=== PATIENT | female | born 1975 | race Caucasian/White ===

== ENCOUNTER 2016-12-08 14:11 | Inpatient (IN) | payer OTHER ==
[~2016-12-08] VITALS: Ht 154.9 cm; Wt 57.6 kg
[~2016-12-08 14:11] MED LIST: DOCU50CA7 PO
[2016-12-08 15:22] LABS: Mean Corpuscular Hemoglobin 29.3 pg (27.0-35.0)
--- NOTE | 2016-12-08 16:21 | PCM.HPOB ---
Subjective Date of Service: Dec 08, 2016 Referring Provider: Admitting Physician: Primary Care Physician: Veronica Martinez MD Attending Physician: Marissa Rahman MD History of Present History of Present Illness This is a 40-year-old at 38 weeks with a estimated date of delivery of 22 December. Her has been complicated by advanced maternal age and Subutex use. She came to the OB clinic today for an NST where her blood pressure was found to be elevated, with decreased movement. She was then transferred to the [facility] where her blood pressure was 149/74 in triage. He denies headaches, blurred vision, contractions, discharge. Patient does not want an epidural. OB History: (5), Para (2) Obstetrical Complications: Gestational Hypertension Past Medical History Obstetrical History: Previous vaginal delivery 2 Medical History: Patient has a history of narcotic pain medication use for fibromyalgia. She is currently tapering her Subutex. Surgical History: None Hx Substance Use: Yes (Percocet) Review of Systems Psychologic: Reports: Apprehensive Medications Home medications vitamin, Subutex 12 mg per day Allergy Coded Allergies: No Known Allergies (Verified , 12/08/16) Exam Vital Signs BP 144/72 HR 110 Exam FHR 160, moderate variability with accelerations Constitutional: Well-developed, Well-nourished, Normal habitus HEENT: Atraumatic Lungs: Clear to Auscultation, Clear to Percussion, Normal Air Movement Heart: Exam Unremarkable, Regular Rate/Rhythm Abdomen: Gravid Extremities: Warm, No Edema Neurological/Psychiatric: Alert, Oriented X3, Cooperative Neuro: Grossly Neurologically Intact Labs/Diagnostics Lab/Diagnostic Information A positive, Rh antibody negative, rubella nonimmune, varicella immune, GBS negative, Maternal Blood Type: A (positive) Antibody Screen: negative Group B Strep Results: Negative Rubella: Non-Immune OB Intrapartum Assessment/Plan Assessment 40-year-old at 38 weeks with gestational hypertension -Monitor heart tones -Admit and begin induction of labor with Cytotec Attending Statement The patient was seen and examined together with Dr. Reinaldo Silverman DO on 2016 and I agree with the history, exam and plan as outlined in the note above. Reinaldo Silverman DO Dec 08, 2016 16:21 Marissa Rahman MD Dec 17, 2016 13:17
[2016-12-08] MEDS ORDERED: Sodium Chloride LOK Flush 10 mL Syringe IVFLUSH PRN (16:45)
[2016-12-08] MEDS ORDERED: Oxytocin 30 Units/500 mL LR 30 UNITS in IV Premix 1 EACH IV PRN (16:45)
[2016-12-08] MEDS ORDERED: Oxytocin 10 Unit/mL Inj IM PRN (16:45)
[2016-12-08] MEDS ORDERED: Carboprost 250 mCg/mL Inj IM PRN (16:45)
[2016-12-08] MEDS ORDERED: Methylergonovine 0.2 mg/mL Inj IM PRN (16:45)
[2016-12-08] MEDS ORDERED: Lactated Ringer's 1,000 ML IV PRN (16:45)
[2016-12-08] MEDS ORDERED: Hemorrhage Kit, Post Partum XX ONE (16:45)
[2016-12-08] MEDS ORDERED: Misoprostol 25 mCg/0.25 Tablet VAGINAL SCH (18:45)
[2016-12-08] MEDS ORDERED: diphenhydrAMINE 50 mg Capsule PO PRN (18:45)
[2016-12-08 18:52] LABS: Mean Corpuscular Hemoglobin 29.7 pg (27.0-35.0); Mean Corpuscular Volume 86.9 fL (81-100)
[2016-12-08] MEDS ORDERED: PREN-12 PO (18:57)
[2016-12-08] MEDS ORDERED: BUPR1FIL3 SL (18:57)
[2016-12-09] MEDS: Lactated Ringer's 1,000 ML IV SCH ×2 (00:17→21:10)
--- NOTE | 2016-12-09 06:49 | PCM.PNOBIP ---
Subjective Date of Service Dec 09, 2016 Delivery plan: Spontaneous Vaginal Delivery Visit History Ruma is a 41-year-old at 38 weeks 1 day, with an estimated date of delivery of 22 December. She presented to the OB clinic 28 November for an NST was found to have elevated blood pressure in the 160s. She was transferred to the [facility] and admitted for gestational hypertension. She received Cytotec and 8:00 last night, and Cervidil 3:15 this morning. Cervical check by Lilly at insertion of Cervidil was /-2. Membranes intact. Patient has been having contractions every 4-6 minutes overnight. Vital signs have remained stable. FHT has been in the 130s to 140s with moderate variability and accelerations. Subjective Patient has been concerned about her baby's well-being, as she is on Subutex, and is trying to avoid any other medications/interventions if possible. Gastrointestinal: No N/V Group B Strep Results: Negative Rubella: Non-Immune Blood Type: A (positive) Labs Laboratory Tests 12/08/16 15:15: Hematology Comments 12/08/16 18:35: White Blood Count 13.8, Red Blood Count 4.27, Hemoglobin 12.7, Hematocrit 37.1, Mean Corpuscular Volume 86.9, Mean Corpuscular Hemoglobin 29.7, Mean Corpuscular Hemoglobin Concent 34.2, Red Cell Distribution Width 13.2, Platelet Count 275 Exam Vital Signs Vital Signs Contraction frequency in minutes: MVUs: Vital Signs: VS reviewed, stable (128/56) Heart Tracings Heart Tones Baseline 140 bpm Heart Rate Variability: Moderate Heart Rate Accelleration: Present Tocometry/IUPC Contraction frequency in minutes: MVUs: Exam Lungs: Clear to Auscultation, Clear to Percussion, Normal Air Movement Heart: Exam Unremarkable, Regular Rate/Rhythm General: Alert, Oriented X3, Cooperative OB Intrapartum Assessment/Plan Assessment 41-year-old at 38 weeks 1 day with gestational hypertension -Continue induction of labor -Monitor for elevated maternal blood pressures and distress Opioid dependence in -Continue Subutex 4 mg twice a day Attending Statement Gestation hypertension for induction of labor. Started with cytotec and cervidil placed 3am. Will continue cervical ripening. Will reevaluate at 3pm. Reinaldo Silverman DO Dec 09, 2016 06:49 Winifred Galindo MD Dec 09, 2016 21:41
[2016-12-09] MEDS: Buprenorphine 2 mg SL Tablet SL SCH ×3 (09:28→21:13)
[2016-12-09] MEDS ORDERED: Oxytocin 30 Units/500 mL LR 30 UNITS in IV Premix 1 EACH IV PRN (16:40)
[2016-12-09] MEDS: fentaNYL-PF 50 mCg/mL 2 mL Inj IVPUSH PRN ×2 (16:54→22:18)
[2016-12-09] MEDS ORDERED: Lactated Ringer's 1,000 ML IV SCH (18:43)
[2016-12-09] MEDS ORDERED: Lactated Ringer's 500 ML IV ONE (18:43)
[2016-12-09] MEDS ORDERED: Atropine 1 mg/10 mL (Code) Syringe IVPUSH PRN (18:45)
[2016-12-09] MEDS ORDERED: Ondansetron 2 mg/mL 2 mL Inj IVPUSH PRN (18:45)
[2016-12-09] MEDS ORDERED: EPHEDrine Sulfate 50 mg/mL Inj IVPUSH PRN (18:45)
--- NOTE | 2016-12-09 23:34 | PCM.HPANE ---
Patient Data Surgeon Admitting Provider:Marissa Rahman MD Attending Provider:Marissa Rahman MD Primary Care Physician:Veronica Martinez MD Other Provider:Merissa Bunch Anesthesia Reason for Visit NST NST Ht/WT & BMI Body Mass Index Allergies Coded Allergies: No Known Allergies (Verified , 12/08/16) Past Anesthesia History Anesthesia History: Denies:: Abnormal Airway, Anesthesia Reactions, Difficult Intubation, Fam Anesthesia Reaction, Fam Malignant Hypertherm, Malignant Hyperthermia Diabetes History Hx Diabetes?: No Medications Reported Medications Vit W-Ca,Fe,FA(<1 mg) ( Formula)1 Each Tablet1 Each PO 12/08/16 Buprenorphine HCl/Naloxone HCl (Suboxone 8 mg-2 mg Sl Film)1 Each Film8-12 Each SL DAILY Ref 0 12/08/16 Discontinued Scripts Docusate Sodium 50 Mg [id number] Mg PO BID PRN For Constipation #20 CAPSULE Prov:Jerzy Tripp PAC 02/24/15 History History of ENT Problems?: No HEENT History: Denies:: Abnormal Airway Cataracts Difficult Intubation Dysphagia Glaucoma Hearing Problem Sinus Problem TMJ Denture Type: None Teeth Condition: Within Normal Limits Hx of Heart Problems?: No Cardiovascular History: Denies:: AICD Abdominal Aortic Aneurism Atrial Fibrillation Cardiac Surgery Chest Pain Congestive Heart Failure Coronary Artery Disease Edema Heart Murmur Hypertension Irregular Heartbeat Pacemaker Peripheral Vascular Rheumatic Fever Thrombophlebitis Valvular Heart Disease Hx of Respiratory Problem?: No Respiratory History: Denies:: Tuberculosis Hx Neurologic Problems?: Yes (fibromyalgia) Hx of GI Problems?: No Hx of Problems?: No Female Hx: Positive for:: Currently Hx Musculoskeletal Problems?: Yes Musculoskeletal History: Positive for:: Fibromyalgia Hx of Psycho/Social Problems?: Yes (hx chronic opiate use) Other History/Comment on subutex Hx Surgeries?: Yes (JAW) Hx Any Other Health Problems?: No Hx Diabetes: No Hx Alcohol Use: NoHx Substance Use: Yes (Percocet)Have You Smoked inLast 12 mo : No Stop/Bang Risk Assessment Category Category 1A: Patient has history of documented sleep apnea, and HAS NOT received any narcotic, sedative or anesthesia administration during this stay. Category 1B: Patient has history of documented sleep apnea, and HAS received any narcotic , sedative or anesthesia administration during this stay Category 2: Patient has SUSPECTED Obstructive Sleep Apnea, and HAS received any narcotic , sedative or anesthesia administration during this stay. Category 3: Patient has SUSPECTED Obstructive Sleep Apnea and HAS NOT received narcotic, sedative or anesthesia administration during this stay. Category 4: Outpatient in Procedural Areas with known sleep apnea or who screen positive for High Risk via the STOP/BANG questionnaire. Exam Exam General Appearance: Alert, Oriented X3, Cooperative HEENT/AIRWAY: MP 2, Neck Movement (FROM) Lungs: Clear to Auscultation, Clear to Percussion, Normal Air Movement Heart: Exam Unremarkable, Regular Rate/Rhythm Meds/Labs/Diagnostics Admission Meds Current Medications Buprenorphine HCl (Subutex) 4 mg BID SL Last administered on 12/09/16 09:28; Start 12/08/16 at 20:30 Misoprostol (Cytotec) 25 mcg Q4H VAGINAL Last administered on 12/08/16 20:06; Start 12/08/16 at 18:45 Labs Test 12/08/16 15:15 12/08/16 16:49 12/08/16 18:35 12/08/16 18:40 Hematology Comments Blood Urea Nitrogen 5mg/dL (6-24) Creatinine 0.53mg/dL (0.57-1.00) Uric Acid 4.5mg/dL (2.6-7.2) Aspartate Amino Transf (AST/SGOT) 22U/L (0-50) Alanine Aminotransferase (ALT/SGPT) 12U/L (0-32) Urine Random Creatinine 9mg/dL (15-278) Urine Random Total Protein < 4mg/dL (0-15) Urine Protein/Creatinine Ratio (0-200) White Blood Count 13.8th/mm3 (3.8-10.1) Red Blood Count 4.27mil/mm3 (3.90-5.20) Hemoglobin 12.7g/dL (12.0-15.6) Hematocrit 37.1% (35.0-46.0) Mean Corpuscular Volume 86.9fL (81-100) Mean Corpuscular Hemoglobin 29.7pg (27.0-35.0) Mean Corpuscular Hemoglobin Concent 34.2% (32.0-37.0) Red Cell Distribution Width 13.2% (12.3-15.4) Platelet Count 275bil/L (150-400) Urine Opiates Screen Negative Urine Methadone Screen Negative Urine Barbiturates Screen Negative Urine Amphetamines Screen Negative Urine Benzodiazepines Screen Negative Urine Cocaine Metabolite Screen Negative Urine Cannabinoids Screen Negative Plan Impression Patient chart reviewed, patient interviewed and anesthestic plan with risks, benefits, and alternatives discussed, and informed consent obtained. ASA Physical Status: ASA3 Severe Disease (chronic opiates) Anesthetic Plan: Epidural Bene/Risks/Altern/Consents: Yes HP Complete Prior to Induction: Yes Tone Mcnamara MD Dec 09, 2016 18:43
[2016-12-10] MEDS ORDERED: Sodium Chloride LOK Flush 10 mL Syringe IVFLUSH SCH (00:30)
[2016-12-10] MEDS: Lactated Ringer's 1,000 ML IV SCH ×2 (01:13→20:09)
--- NOTE | 2016-12-10 06:54 | PCM.PNOBIP ---
Subjective Date of Service Dec 10, 2016 Delivery plan: Spontaneous Vaginal Delivery Visit History Ruma is a 41-year-old at 38 weeks 2 days, with an estimated date of delivery of 22 December. She presented to the OB clinic 08 December for an NST and was found to have elevated blood pressure in the 160s. She was transferred to the [facility] and admitted for gestational hypertension. She has received Cytotec and Cervidil, and is progressing very slowly. Cervical check today at 0330 by nurse was 3.5/90/-2. She is currently on Pitocin. Patient has been having contractions every 3-4 minutes. Vital signs have remained stable. FHT has been in the 150s with moderate variability and accelerations. Patient received an epidural last night. Subjective Patient is resting comfortably in bed with . Pain Management: Epidural Gastrointestinal: No N/V Group B Strep Results: Negative Rubella: Non-Immune Blood Type: A (positive) RH Type: Positive Labs Laboratory Tests 12/08/16 15:15: Hematology Comments 12/08/16 18:35: White Blood Count 13.8, Red Blood Count 4.27, Hemoglobin 12.7, Hematocrit 37.1, Mean Corpuscular Volume 86.9, Mean Corpuscular Hemoglobin 29.7, Mean Corpuscular Hemoglobin Concent 34.2, Red Cell Distribution Width 13.2, Platelet Count 275 Exam Vital Signs Vital Signs Contraction frequency in minutes: MVUs: BP 132/61, HR 80 Vital Signs: VS reviewed, stable Heart Tracings Heart Tones Baseline 150 bpm moderate variability with accelerations Tocometry/IUPC Contraction frequency in minutes: MVUs: Sterile Vaginal Exam Cervical Dilation: 3 cms Cervical Effacement: 90 % Station: -2 Exam Lungs: Clear to Auscultation, Clear to Percussion, Normal Air Movement Heart: Exam Unremarkable, Regular Rate/Rhythm General: Alert, Oriented X3, Cooperative OB Intrapartum Assessment/Plan Assessment 41-year-old at 38 weeks 2 days with gestational hypertension undergoing induction of labor - not progressing -Stop Pitocin and restart in 5 hours -consider artificial rupture of membranes -Monitor FHT and tocometry -Anticipate Opioid dependence in -Continue Subutex Reinaldo Silverman DO Dec 10, 2016 06:54
[2016-12-10] MEDS: fentaNYL 2 mCg/mL-Bupiv 0.125% 100 ML EPIDURAL SCH ×2 (07:47→16:37)
[2016-12-10] MEDS: Buprenorphine 2 mg SL Tablet SL SCH ×3 (08:30→20:09)
[2016-12-10] MEDS ORDERED: Carboprost 250 mCg/mL Inj IM PRN (23:20)
[2016-12-10] MEDS ORDERED: Benzocaine (Dermoplast) 20% 60 Gm Spray TOPICAL PRN (23:20)
[2016-12-10] MEDS ORDERED: LANOlin HPA 7 Gm Ointment TOPICAL PRN (23:20)
[2016-12-10] MEDS ORDERED: Witch Hazel-Glycerin Pads TOPICAL PRN (23:20)
[2016-12-10] MEDS ORDERED: Oxytocin 10 Unit/mL Inj IM PRN (23:20)
[2016-12-10] MEDS ORDERED: Hemorrhage Kit, Post Partum XX ONE (23:20)
[2016-12-10] MEDS ORDERED: Methylergonovine 0.2 mg/mL Inj IM PRN (23:20)
[2016-12-10] MEDS ORDERED: Oxytocin 30 Units/500 mL LR 30 UNITS in IV Premix 1 EACH IV PRN (23:20)
[2016-12-10] MEDS ORDERED: Lactated Ringer's 1,000 ML IV SCH (23:20)
--- NOTE | 2016-12-10 23:53 | OP ---
[address] [address] OPERATIVE REPORT PATIENT: ANG LONDONO : 1975 MR#: [id number] ADMIT: 12/08/2016 JOB ID: [id number] DATE OF SURGERY: 12/10/2016 SURGEON: PREOPERATIVE DIAGNOSIS(ES): A 40-year-old, 5, para 2, at 38 weeks for induction of labor because of -induced hypertension. POSTOPERATIVE DIAGNOSIS(ES): 1. A 40-year-old, 5, para 3, spontaneous vaginal delivery at 38 weeks and 2 days. 2. Substance use. 3. Advanced maternal age. 4. -induced hypertension. DELIVERY SUMMARY: The patient is a 40-year-old, 5, para 3 now, who was admitted to labor and delivery on December 08, 2016, for induction of labor because of elevated blood pressure. In the clinic it was 149/74. It was found to be borderline high on labor and delivery floor in 140s/80s. The patient signed the consent for induction of labor. Induction of labor was started with Cytotec until the cervix was ripened. Then on December 09, 2016, at 3:15 in the morning Cervidil was placed for 12 hours. When the Cervidil came out at 3:15 p.m., the patient was 4 cm dilated, 50% effaced, -3 station, and oxytocin was started. She does was re-examined in the morning of December 10, 2016 and was found to be the same, 4 cm, 50% effacement, -2 station. Pitocin was discontinued at 8 a.m. The patient was allowed to rest for five hours when it was restarted again at 1 p.m. The dose of Pitocin was gradually increasing until 14 milliunits per minute. At 10 p.m. when the patient had spontaneous rupture of membranes, on exam she was found to be 7 cm dilated, 80% effaced, station -1. She progressed to full dilation at 10:25 p.m. and started pushing. At 10:45 p.m., she underwent spontaneous vaginal delivery, delivered a female with Apgars 9 at one minute and 9 at five minutes. Delayed cord clamping was done for 60 seconds. The patient has not had any perineal lacerations. There was a little problem with delivery of the placenta. Initial attempt to deliver it within 5-10 minutes was not successful. Expectant management was provided and at 10:15 the placenta was finally delivered, it was sent to Pathology. The patient was re-examined and the uterine fundus was firm. There was no bleeding. ESTIMATED BLOOD LOSS: 200 mL.
--- NOTE | 2016-12-11 06:23 | NUR ---
Family Social Hx Assumed care of MOB at 1900. FOB present at bedside, all other involved family members reported to be in ER waiting room. Parents did not want their family in room at that time, needed quiet time to rest. Maternal grandmother was particularly upset that she was not being allowed to be at bedside. Calling unit and MOB repeatedly, sending text messages, verbally abusing staff trying to get in to see MOB during labor. MOB's two daughters with maternal grandmother, FOWiley's mother also present in ER waiting room. At approx 2200 pt began to progress rapidly after 2 day induction. to vigorous female at 2245. Parents did not want family in room for delivery despite repeated calls and texts requesting to be let back into the room. After delivery, JESSICA was particularly anxious and angry that the maternal grandmother and MOB's 2 other daughters were being "so selfish". FOB constantly on phone checking text messages and getting increasingly angry at maternal grandmother. MOB bonding appropriately with baby during this time and trying to calm FOB down and get him to be mentally present with her and new baby. JESSICA is not father of two other daughters, ages 12 and 14. He made an angry comment to MOB that one of them was acting like MOB's former and being very rude, and he stated "my daughter will never act like that" referring to baby. Nurses attempted to calm JESSICA and involve him in baby care, but he continued to focus on family issues. Suggested turning phone off but JESSICA would not do so. Asked JESSICA if he wanted to take pictures when baby was weighed, he was lying on the couch with towel over eyes and stated "I'm sorry I just can't" and continued to lay on the couch in silence. JESSICA also upset that baby's name on paperwork would be Verrue and not his last name (Verrue is last name of MOB's previous ). During recovery period, parents requested that this nurse go down to ER to update family in hopes that they would not send any more messages. Upon arrival in ER family appeared to be leaving. Both grandmothers and two daughters present. Spoke with them in ER entrance area. Security also present during conversation. Maternal grandmother very verbally aggressive, very angry when she heard that MOB had delivered and she was not called to be present. Daughters asking appropriate questions about the baby and MOB. Paternal grandmother also appropriate, seemed very pleasant. Maternal grandmother stated very angrily that MOB shouldn't bother coming to her house with baby, said she was leaving. Very upset that they weren't allowed to even be in [facility] waiting room. RN then returned to unit escorted by security. Later parents decided to allow family into room for short period. When nurse called security to let family in, they stated that family had already left hospital. At approx 0100 FOB found in BR, appeared to have just been standing in there. He left room to "get fresh air" and did not return until approx 0500. MOB stated he was overwhelmed with family and having his first baby, that he was going out to his van and might sleep.
--- NOTE | 2016-12-11 07:11 | NUR ---
Shift summary to vigorous female at 2245. Placed skin to skin for first hour, delayed cord clamping. RR in 80's after , gradually dropping to 50-60's. No increased work of breathing. MOB bonding appropriately. FOB did hold baby, but was too distracted by other social issues to show adequate bonding activities. Although initially vigorous, baby quickly quieted down, was very sleepy, not interested in feeding. Unable to latch despite multiple attempts, position changes, full assist from nurses. Took baby for admission activities, baby still unable to latch after, but was able to suck on finger. Tried using nipple shield, baby was able to latch for 15minutes. BG remaining in 40's, Dr. Rodriguez aware, given multiple updates throughout the night, frequently at bedside. Able to give baby 6ml of formula at 0420, baby took 14ml of EBM/formula 1 hour later after BG had not increased. After more formula given, BG was 52. Set up pump for MOB, able to pump 6ml colostrum the first time. Baby continued to be very sleepy and difficult to rouse, RR in 60's. Dr. Rodriguez ordering CELIA scoring and U bag to be placed. Baby had already voided prior to bag placement.
--- NOTE | 2016-12-11 08:03 | PCM.PNOBPP ---
Subjective Date of Service Dec 11, 2016 Post : Spontaneous Vaginal Delivery Visit History Ruma is a G5 now P3 admitted on and November for gestational hypertension at 38 weeks 1 day. She underwent induction, and had a normal spontaneous vaginal delivery last night at 1045. Ruma is feeling well, without nausea, vomiting , headaches, fever. She is ambulating by herself in the room, and is eating and drinking okay. She feels ready to go home, but the baby has had low blood sugars, and has not been feeding well, so they will most likely stay another day. Lochia: Light Pain Management: PO pain meds, Epidural Gastrointestinal: No N/V Postop Activity: Ambulating Independently Group B Strep Results: Negative Rubella: Non-Immune Blood Type: A (positive) RH Type: Positive Labs Laboratory Tests 12/08/16 15:15: Hematology Comments 12/11/16 06:38: Exam Vital Signs Vital Signs BP 154/77 HR 75 Exam Abdomen: Fundus firm Extremities: No tenderness/swelling, No edema Lungs: Clear to Auscultation, Normal Air Movement Heart: Exam Unremarkable, Regular Rate/Rhythm General: Alert, Oriented X3, Cooperative OB Post Assessment/Plan Assessment 41-year-old day 1 -Continue to monitor patient while she waits for discharge of baby Opioid dependence -Continue Subutex Pain Evaluation: Adequate Pain Control Post plan: Continue routine post care Attending Statement The patient was seen and examined together with Dr. Reinaldo Silverman DO on 2016 and I agree with the history, exam and plan as outlined in the note above. Reinaldo Silverman DO Dec 11, 2016 08:03 Marissa Rahman MD Dec 17, 2016 16:58
[2016-12-11] MEDS: Buprenorphine 2 mg SL Tablet SL SCH ×2 (09:03→21:02)
[2016-12-11] MEDS: Ascorbic Acid 500 mg Tablet PO SCH ×2 (09:03→20:15)
[2016-12-11] MEDS: oxyCODONE-Acetamin 5-325 mg Tablet PO PRN ×2 (09:04→23:46)
--- NOTE | 2016-12-11 10:00 | NUR ---
received SW referral. advised [employer].
[2016-12-11 10:11] LABS: Mean Corpuscular Volume 89.1 fL (81-100)
--- NOTE | 2016-12-11 10:49 | NUR ---
Social Work Note:Referral Received D/A/P: DEMURRAGE MAN received referral for social disarray concerns. DEMURRAGE MAN spoke with cadastral engineer Anupama and sissyed that she would be up to evaluate Pt in approximately two hours. KAYLIE Kaur, AAC
--- NOTE | 2016-12-11 14:44 | NUR ---
Social Work Note D/A: Pt is a 41 year old female who gave to BG on 12/10/2016. Pt reported that she currently resides with her mother in [place]. Pt indicated that she intends to return to this home with BG upon discharge. Pt explained that she has everything that she will need to care for BG at home including a crib and a car seat. Pt reported that she receives food stamps. Pt is not enrolled in [facility] but indicated that she was planning to do so once she was discharged. Pt explained that BG is her third child. Pt reported no previous CPS involvement. Pt denied any history of DV. Pt reported that she became addicted to pain medications and has been taking Subutex that is managed by her PCP. Pt had clean UA's throughout care and has spoke with C RN and MD staff regarding safely tapering off of the Subutex. Per senior staff psychologist, Pt was advised to address that once she was done BG. Pt indicated that she believes she experienced some mild post depression with her first child and did take Wellbutrin for a while. Pt explained that she has not been on any psychiatric medications since learning that she was with BG. Pt reported that she has been managing just fine with out any psychiatric medication and indicated that she does not plan to resume these medications unless she experiences post depression. Pt reported no legal concerns at this time. CHAIR UPHOLSTERER discussed Pt's family's behaviors from last night with her and FOB, Marshall Olmos. Per senior staff psychologist, Pt's mother and sisters were asked by Pt and FOB to leave the room and allow them some time to themselves in the morning on 12/10/2016. senior staff psychologist indicated that Pt's family remained in the waiting room and checked in with the UA every few minutes to see if they were allowed back in Pt's room. Pt's mother became belligerent with FB staff last night and security became involved. Pt's family was asked to leave and return later when everyone had calmed down. Pt reported that she was too worn out and anxious yesterday after being in labor for so long and she asked her family to leave because they were just too much for her to handle at the time. Marshall indicated that he suspects that Pt's mother and sisters believed that they had been denied access to Pt and BG forever and they overreacted. Pt and FOB explained that Pt's family is very supportive and this event was atypical of their normal interactions with them. Pt and FOB reported that they would discuss the situation with Pt's family and expressed that they were confident that it would be easily resolved. P: Pt expressed that she has sufficient social supports with friends and family who are all close, supportive and happy to help with BG. Pt is enrolled in appropriate licensed master social worker. senior staff psychologist indicated that Pt has been appropriate and affectionate with BG while in the hospital. senior staff psychologist expressed concerns regarding Pt's mother's behavior yesterday. CHAIR UPHOLSTERER relayed Pt's explanation of the situation to senior staff psychologist and no further concerns were expressed. CHAIR UPHOLSTERER conferred with [facility] senior staff psychologist and the decision was made that no CPS referral would be needed in this case. Pt to be discharged once medically cleared by [facility] . KAYLIE Kaur, AAC
[2016-12-12] MEDS ORDERED: DOCU-41 PO (07:06)
[2016-12-12] MEDS ORDERED: IBUP800T28 PO (07:06)
[2016-12-12] MEDS ORDERED: ASCO-294 PO (07:30)
[2016-12-12] MEDS ORDERED: OXYC1TAB24 PO (07:30)
[2016-12-12] MEDS ORDERED: FERR-83 PO (07:30)
--- NOTE | 2016-12-12 07:36 | PCM.DIOB ---
Obstetrical Disch Instruction Date of Service: Dec 12, 2016 Dates of Hospitalization Date of Hospital Admission Dec 08, 2016 at 18:00 Providers Admitting Physician: Marissa Rahman MD Primary Care Physician: Veronica Martinez MD Attending Physician: Marissa Rahman MD Discharge Diagnosis Discharge Diagnosis Normal spontaneous vaginal delivery at 38 weeks 2 days Problems: Diet Discharge Diet: No restrictions Activity Discharge Activity-General: Pelvic Rest for 6 weeks, Try not to overdue, No lifting >10 pounds for 4-6 weeks Dressing and Incisional Care Hygiene: May shower, NO bathtub, hot tub or whirlpool Additional Instructions Discharge Instructions Continue your vitamin. Please take the iron and vitamin c together. Do not take more pain medication (Percocet) than is necessary -- less is better. Percocet pills have Tylenol (acetaminophen) in them at 325mg per pill. Do not take Tylenol in addition to your pain medication but should take one or the other. Do not take while driving or working. Both iron and Percocet can give you constipation so you have also been given a prescription for docusate to keep you regular. Be sure to follow up in 1 week and then again in 6 weeks at [facility]. Pelvic rest for 6 weeks (nothing per vagina including intercourse, tampons) If you have a fever greater than 100.4, please call [facility]. There is always someone communications analyst to talk to. If you have an increase in bleeding, call [facility]. If you have a lot of bleeding suddenly, especially if you have symptoms of dizziness & weakness with it, get emergency help. If you start experiencing extreme depression, especially if you feel that you are a danger to yourself or your family, seek emergency help. You have been through a lot -- BE SURE TO TAKE CARE OF YOURSELF. You have recently had some high blood pressures, be sure to be aware of any symptoms such as headaches dizziness or vision changes, and come in if you experience these. You have been sent home with the following prescriptions: - Percocet 5/325 mg, take 1 tab every 4-6 hours as needed for pain. - Colace 100 mg twice a day as needed for constipation. - Ferrous sulfate 325 mg every day. - Vitamin C 500 mg every day. Take with iron. - Ibuprofen 800mg take 1 tab every 8 hours as needed for pain. Take with a meal. Follow-up in 2 and 6 weeks with [facility]. Follow Up Plan Follow Up Plan Follow-up in one week at the OB clinic for a blood pressure check. And then at 6 weeks for check. Follow-up Provider (F9): Kevin Arguelles MD Follow-up appointment: Weeks (1) Call your provider for: Fever or Chills, Shortness of breath, Heavy vaginal bleeding, Heavy bleeding, Epigastric pain, Excessive constipation, Vaginal discomfort, Red painful breasts Reinaldo Silverman DO Dec 12, 2016 07:34
[2016-12-12] MEDS: oxyCODONE-Acetamin 5-325 mg Tablet PO PRN (07:50)
[2016-12-12] MEDS: Ascorbic Acid 500 mg Tablet PO SCH (07:50)
[2016-12-12] MEDS: Buprenorphine 2 mg SL Tablet SL SCH (08:51)
[2016-12-12 09:48] VITALS: BP 147/70; PULSE 76; RESP 16
[2016-12-12] MEDS ORDERED: Measles-Mumps-Rubella Vaccine 0.5 mL Inj SUBQ ONE (09:50)
--- NOTE | 2016-12-12 12:50 | PCM.DC.OB ---
Obstetrical Discharge Summary Date of Service Dec 12, 2016 Date of hospital admission Dec 08, 2016 at 18:00 Date of Discharge: Dec 12, 2016 Providers Admitting Physician: Marissa Rahman MD Primary Care Physician: Veronica Martinez MD Attending Physician: Marissa Rahman MD Diagnosis at Time of Discharge 41-year-old G5 now P3 status post spontaneous vaginal delivery Gestational hypertension requiring induction of labor Substance use on Subutex Problems: Invasive procedures Epidural Brief History and Physical: From the history and physical obtained on admission by Dr. Reinaldo Silverman, This is a 40-year-old at 38 weeks with a estimated date of delivery of 22 December. Her has been complicated by advanced maternal age and Subutex use. She came to the OB clinic today for an NST where her blood pressure was found to be elevated, with decreased movement. She was then transferred to the [facility] where her blood pressure was 149/74 in triage. She denies headaches, blurred vision, contractions, discharge. Hospital Course: Ruma was induced for gestational hypertension, and had a spontaneous vaginal delivery on December 10 at 2245. Apgars were 9 and 9, estimated blood loss was 200 mL, there were no lacerations to repair. She did not require any antihypertensive medications. On the day of discharge, patient was ambulatory, eating and drinking, and without nausea, vomiting, headaches, and her pain was controlled on oral meds. Her blood pressure has been running in the 130s to 150s systolic. Note from Dr. Lee: Notified by pharmacy about prescribing Percocet while patient is taking Subutex. Patient's pain management provider recommends that the patient not take Percocet. Called pharmacy to cancel Percocet prescription. Called patient's listed phone number and left a message with patient's step- father to have patient return my call at [phone] Ascorbate Calcium (Vitamin C) 500 Mg Tablet 500 MG PO DAILY Prescribed by: FARZANA LEE DO Buprenorphine HCl/Naloxone HCl (Suboxone 8 mg-2 mg Sl Film) 1 Each Film 8-12 EACH SL DAILY (Reported) Docusate Sodium (Colace) 100 Mg Capsule 100 MG PO BID PRN PRN For Constipation Prescribed by: FARZANA LEE DO Ferrous Sulfate (Ferrous Sulfate) 325 Mg Tablet 325 MG PO DAILY Prescribed by: FARZANA LEE DO Ibuprofen (Ibuprofen) 800 Mg Tablet 800 MG PO TID PRN PRN For Pain Prescribed by: FARZANA LEE DO Vit W-Ca,Fe,FA(<1 mg) ( Formula) 1 Each Tablet 1 EACH PO ( Reported) oxyCODONE-Acetaminophen 5-325 mg (oxyCODONE-Acetaminophen 5-325 mg) 1 Each Tablet 1 TAB PO Q6H PRN PRN For Pain Prescribed by: FARZANA LEE DO Discontinued Medications Docusate Sodium (Docusate Sodium) 50 Mg Capsule 50 MG PO BID PRN PRN For Constipation Prescribed by: MICHAEL WALLER, PAC Disposition Boarder status, awaiting discharge of baby. Follow-up plan Follow-up in 1 week at the OB clinic for blood pressure check, then follow-up in 6 weeks for check. Discharge Diet: No restrictions Discharge Activity-General: Pelvic Rest for 6 weeks, Try not to overdue copies to: Kevin Arguelles MD, Aaron C DO Dec 12, 2016 12:50 Farzana Lee DO Dec 12, 2016 16:17
--- NOTE | 2016-12-15 11:45 | PATH ---
SURGICAL PATHOLOGY Attending Physician:Kevin Arguelles MD CASE STATUS: Signed Out PATIENT NAME: ANG LONDONO PID: [id number] : 1975 DATE COLLECTED:12/10/2016 00:00 SPECIMEN: Placenta CLINICAL HISTORY: IUP 38 WEEKS P14 10L 1). PLACENTA FINAL DIAGNOSIS: 1.PLACENTA WITH UMBILICAL CORD AND MEMBRANES (SPECIMEN IS GROSSLY FRAGMENTED): 1. PLACENTA: 467 GRAMS, WHICH IS APPROXIMATELY THE 45TH PERCENTILE FOR 38 WEEKS GESTATION NEGATIVE FOR SIGNIFICANT INFLAMMATION. NEGATIVE FOR EVIDENCE OF INFARCTION AND SIGNIFICANT VASCULAR LESIONS. 2. MEMBRANES: SPECIMEN FRAGMENTED PRECLUDING IDENTIFICATION OF RUPTURE SITE. MILD ACUTE CHORIONITIS AND DECIDUITIS. 3.UMBILICAL CORD: 27.5 CM IN LENGTH WITH THREE NORMAL BLOOD VESSELS CORD ATTACHMENT SITE CANNOT BE IDENTIFIED DUE TO SPECIMEN FRAGMENTATION. NEGATIVE FOR SIGNIFICANT INFLAMMATION. ICD10 O41.1 GROSS DESCRIPTION: The specimen is received in formalin, labeled with the patient's name, and consists of a placenta received in multiple pieces (467 g, 20.5 x 15.5 x 3.2 cm in aggregate) connected by membranes. The umbilical cord (length-27.5 cm, diameter-1.0 x 0.8 cm) is present. The membranes are torn and semitranslucent. The rupture site cannot be determined. The umbilical cord attachment site cannot be determined. The cord contains 3 vessels. The surface is smooth and shiny with no evidence of meconium identified. The maternal surface is dark maroon with normal cotyledon formation. The placental body is spongy with no nodules, masses, lesions, hematomas or infarcts identified. Section code: (A) edge of placenta with membranes, umbilical cord; (B-C, D, E) placenta, 3 full-thickness sections. 12/13/16 JM MICRO DESCRIPTION: See diagnosis. ICD-9 CODES: CPT CODES: 1: 11453 Electronically Signed Out Drew Ford MD [facility] [address], [place] [address] Technical component performed at [facility], [facility] [address], [place], [address]
== END 2016-12-12 12:56 | disposition home or self-care (01) | DRG 560 ==
LOC: FBCO 14:11 → FBC 18:00
PROVIDERS: ADMIT Obstetrics & Gynecology; ATTEND Legal Medicine
PROC: 3E0P7GC Introduction of Other Therapeutic Substance into Female Reproductive, Via Natural or Artificial Opening (ICD-10-PCS; 2016-12-08)
PROC: 10H07YZ Insertion of Other Device into Products of Conception, Via Natural or Artificial Opening (ICD-10-PCS; 2016-12-08)
PROC: 10E0XZZ Delivery of Products of Conception, External Approach (ICD-10-PCS; principal; 2016-12-10)
DX: O13.4 Gestational [pregnancy-induced] hypertension without significant proteinuria, complicating childbirth (principal); F11.20 Opioid dependence, uncomplicated; Z3A.38 38 weeks gestation of pregnancy; Z37.0 Single live birth; O99.324 Drug use complicating childbirth